=== PATIENT | male | born 1960 | race Caucasian/White ===

== ENCOUNTER 2021-03-12 12:27 | Outpatient (CLI) | payer BC ==
[2021-03-12 13:13] LABS: #Eosinphils 0.1 10x3/uL (0.0-0.5); #Monocytes 0.5 10x3/uL (0.0-1.1); #Neutrophils 3.3 10x3/uL (1.5-8.4); %Basophils 0.6 % (0.0-2.0); %Eosinophils 1.3 % (0.0-6.0); %Lymphocytes 15.6 % (18.0-47.0); %Monocytes 10.9 % (0.0-10.0); %Neutrophils 71.4 % (40.0-75.0); Hemoglobin 12.6 g/dL (13.5-17.5); Mean Corpuscular HGB CONC 31.3 g/dL (32.0-36.0); Mean Corpuscular Hemoglobin 27.9 pg (27.0-33.0); Mean Corpuscular Volume 88.9 fl (81.2-95.1); Mean Platelet Volume 8.8 fl (7.4-10.4); Platelet Count 197 10x3/uL (150-450); RBC Distribution Width 14.2 % (11.5-14.5); Red Blood Cell (RBC) Count 4.52 10x6/uL (4.32-5.72); White Blood Cell (WBC) Count 4.7 10x3/uL (3.5-10.5)
[2021-03-13 06:52] LABS: SARS-CoV-2 NAA Rapid Test Not Detected (NotDetected)
== END 2021-03-12 12:28 | disposition home or self-care (01) ==
LOC: LABBT 12:27
PROVIDERS: ATTEND Orthopaedic Surgery Hand Surgery
DX: Z01.818 Encounter for other preprocedural examination (principal); S62.606B Fracture of unspecified phalanx of right little finger, initial encounter for open fracture; Z20.822 Contact with and (suspected) exposure to COVID-19
CPT/HCPCS: 85025; 93005; 93010; U0002; U0003; U0005

== ENCOUNTER 2021-03-13 09:27 | Day surgery (SDC) | payer BC ==
[2021-03-12 14:41] VITALS: BMI 25.1
[2021-03-13] MEDS ORDERED: Bacitracin Zinc Ointment 30 gm TUBE ONE (15:29)
[2021-03-13] MEDS ORDERED: Thrombin 5000 UNITS/5 ML VIAL ONE (15:29)
[2021-03-13] MEDS ORDERED: Neomycin-Polymyxin 1 ML AMP ONE (15:29)
[2021-03-13] MEDS ORDERED: Bupivacaine PF 0.5% 30 ML VIAL ONE (15:29)
[2021-03-13] MEDS ORDERED: Mineral Oil Sterile 10 ML VIAL ONE (15:29)
[2021-03-13] MEDS ORDERED: Fentanyl 100 MCG/2 ML VIAL ONE (15:30)
[2021-03-13] MEDS ORDERED: ceFAZolin 2 GM/Dextrose 50 ML IVPB ONE (15:55)
[2021-03-13] MEDS ORDERED: Ondansetron PF 4 MG/2 ML Vial ONE (16:04)
[2021-03-13] MEDS ORDERED: Dexamethasone 20 MG/5 ML VIAL ONE (16:04)
[2021-03-13] MEDS ORDERED: PROPOFOL 200 MG/20 ML VIAL ONE (16:04)
[2021-03-13] MEDS ORDERED: Ketorolac Tromethamine 30 MG/ML VIAL ONE (16:04)
[2021-03-13] MEDS ORDERED: ePHEDrine 50 MG/ML VIAL ONE (16:04)
[2021-03-13] MEDS ORDERED: PHENYLEPHRINE-NS 100 MCG/ML 10 ML SYRINGE ONE (16:04)
[2021-03-13] MEDS ORDERED: Glycopyrrolate 0.2 MG/ML 5 ML SYRINGE ONE (16:04)
[2021-03-13] MEDS ORDERED: Lidocaine 1% PF 5 ML VIAL ONE (16:04)
== END 2021-03-13 19:35 | disposition home or self-care (01) ==
LOC: SDC 09:27
PROVIDERS: ATTEND Orthopaedic Surgery Hand Surgery
PROC: 0HTQXZZ Resection of Finger Nail, External Approach (ICD-10-PCS; principal; 2021-03-13)
PROC: 0HRFX73 Replacement of Right Hand Skin with Autologous Tissue Substitute, Full Thickness, External Approach (ICD-10-PCS; principal; 2021-03-13)
DX: S62.666B Nondisplaced fracture of distal phalanx of right little finger, initial encounter for open fracture (principal); I10 Essential (primary) hypertension; G35 Multiple sclerosis; D53.9 Nutritional anemia, unspecified; N40.0 Benign prostatic hyperplasia without lower urinary tract symptoms; F17.200 Nicotine dependence, unspecified, uncomplicated; Z79.899 Other long term (current) drug therapy; W22.8XXA Striking against or struck by other objects, initial encounter; Y93.89 Activity, other specified
CPT/HCPCS: 76000; J0690; J1100; J1885; J2405; J2704; J3010; J3490; S0020